=== PATIENT | female | born 1955 | race Caucasian/White ===

== ENCOUNTER 2022-08-28 14:41 | Outpatient (CLI) | payer OTHER, SELFPAY ==
--- NOTE | 2022-08-28 15:00 | CRLHL7_ITS ---
For Patients: As a result of the Century Cures Act, medical imaging exams and procedure reports are released immediately into your electronic medical record. You may view this report before your referring provider. If you have questions, please contact your health care provider. BILATERAL SCREENING MAMMOGRAM WITH COMPUTER-AIDED DETECTION AND TOMOSYNTHESIS TECHNIQUE: CC and MLO views were obtained. These mammographic images have been obtained using full-field digital technique. These mammographic images were interpreted with the benefit of computer-aided detection. Breast Tomosynthesis was used in this interpretation. COMPARISON FILM: 09/02/21, 08/13/20, 08/12/19. FINDINGS: There are scattered areas of fibroglandular density IMPRESSION: There is no radiographic evidence for malignancy. ASSESSMENT: BI-RADS Category 1: Negative RECOMMENDATION: Routine screening mammogram in 1 year. A lay language report of this examination will be provided to the patient. Wesley Fernández M.D. Diagnostic Radiologist [email or web address] NAGI/Dictated by: Wesley Fernández MD @ 08/29/2022 9:40:00 AM (Electronically Signed)
== END 2022-08-28 14:42 | disposition home or self-care (01) ==
LOC: MAMMO 14:42
PROVIDERS: PCP Physician Assistant Medical; Visit Provider Physician Assistant Medical
DX: Z12.31 Encounter for screening mammogram for malignant neoplasm of breast (principal)
CPT/HCPCS: 77063; 77067

== ENCOUNTER 2022-09-24 08:29 | Outpatient (CLI) | payer OTHER, SELFPAY | END 2022-09-24 08:30 | disposition home or self-care (01) | LOC: NFLDREF 09-25 11:24 | PROVIDERS: PCP Physician Assistant Medical; Referring Provider Physician Assistant Medical; Visit Provider Physician Assistant Medical | DX: Z00.00 Encounter for general adult medical examination without abnormal findings (principal); Z13.6 Encounter for screening for cardiovascular disorders | CPT/HCPCS: 80053; 80061 ==

== ENCOUNTER 2023-03-06 07:40 | Outpatient (CLI) | payer MEDICARE, SELFPAY | END 2023-03-06 07:41 | disposition home or self-care (01) | LOC: RAD 07:41 | PROVIDERS: PCP Physician Assistant Medical; Visit Provider Internal Medicine | DX: I50.9 Heart failure, unspecified (principal) | CPT/HCPCS: 93306 ==

== ENCOUNTER 2023-07-03 07:42 | Outpatient (CLI) | payer MEDICARE, SELFPAY ==
--- NOTE | 2023-07-03 08:50 | W.ANESCHARGE ---
Anesthesia Charges Start Date/Time Anesthesia Start Date: 07/03/23 Anesthesia Start Time: 08:20 Stop Date/Time Anesthesia Stop Date: 07/03/23 Anesthesia Stop Time: 08:46
--- NOTE | 2023-07-03 09:05 | W.ANESCHARGE ---
Anesthesia Charges Start Date/Time Anesthesia Start Date: 07/03/23 Anesthesia Start Time: 08:20 Stop Date/Time Anesthesia Stop Date: 07/03/23 Anesthesia Stop Time: 08:46
== END 2023-07-03 07:43 | disposition home or self-care (01) ==
LOC: OP CLINIC 07:43
PROVIDERS: PCP Physician Assistant Medical; Visit Provider Internal Medicine
DX: Z12.11 Encounter for screening for malignant neoplasm of colon (principal); K63.5 Polyp of colon; K57.30 Diverticulosis of large intestine without perforation or abscess without bleeding; Z86.010 Personal history of colon polyps
CPT/HCPCS: 00811; 45380; 88305; J2704

== ENCOUNTER 2023-09-01 13:35 | Outpatient (CLI) | payer MEDICARE, SELFPAY ==
--- NOTE | 2023-09-01 14:00 | MM_ITS ---
Patient: SUKHJINDER STANLEY Facility:?[facility] Patient ID:?[id number] Site Patient ID:?[id number]. Site :?[id number] Study:?XRay-Breast Bilateral 3D W/CAD-09/01/2023 2:13:11 PM Ordering Physician:Parish Final Report: BILATERAL SCREENING MAMMOGRAM WITH COMPUTER-AIDED DETECTION AND TOMOSYNTHESIS TECHNIQUE: CC and MLO views were obtained. These mammographic images have been obtained using full-field digital technique. These mammographic images were interpreted with the benefit of computer-aided detection. Breast Tomosynthesis was used in this interpretation. COMPARISON FILM: 08/28/22, 09/02/21, 08/13/20. FINDINGS: There are scattered areas of fibroglandular density IMPRESSION: There is no radiographic evidence for malignancy. ASSESSMENT: BI-RADS Category 1: Negative RECOMMENDATION: Routine screening mammogram in 1 year. A lay language report of this examination will be provided to the patient. Wesley Fernández M.D. Diagnostic Radiologist [email or web address] FAUSTINO/clary D& Transcribed: 9:28 p.m. NAGI/Dictated by: Wesley Fernández MD @ 09/02/2023 12:16:00 PM Signed by:?Wesley Fernández MD @09/03/2023 5:28:12 AM (Electronic Signature)
== END 2023-09-01 13:36 | disposition home or self-care (01) ==
PROVIDERS: PCP Physician Assistant Medical; Visit Provider Physician Assistant Medical
DX: Z12.31 Encounter for screening mammogram for malignant neoplasm of breast (principal)
CPT/HCPCS: 77063; 77067

== ENCOUNTER 2024-01-05 08:18 | Outpatient (CLI) | payer MEDICARE, SELFPAY ==
--- OUTSIDE RECORDS SUMMARY | 2024-01-06 11:46 | XMS_ITS | Referral Summary ---
Author Organization [facility] Address [address] [place] [id number] Care Team Providers Care Card Table Attendant Name Role Phone Phoebe Snyder MD Unavailable [phone] [facility], [facility] Primary Care Provider Allergies Active Allergy Reactions Criticality Noted Date Comments Tetrahydrozoline Hcl 09/24/2011 Watery, swelling and red Hydrocodone-Acetaminophen 09/24/2011 Swelling, rash Medications Medication Sig Dispensed Refills Start Date End Date Status [place]-3 Fatty Acids (OMEGA-3 FISH OIL PO) Take by mouth daily. Active aspirin 81 MG tablet Take 1 tablet (81 mg) by mouth daily 02/07/2015 Active nitroglycerin (NITROSTAT) 0.4 MG SL tabletIndications:Be nary artery disease involving makah coronary artery of makah heart without angina pectoris Place 1 tablet (0.4 mg) under the tongue every 5 minutes as needed for chest pain 25 tablet 0 02/20/2016 Active atorvastatin (LIPITOR) 40 MG tabletIndications:Be nary artery disease involving makah coronary artery of makah heart without angina pectoris,Hyperlipidemi a LDL goal <70 TAKE 1 TABLET(40 MG) BY MOUTH DAILY 90 tablet 4 06/03/2017 Active lisinopril (PRINIVIL/ZESTRIL) 40 MG tabletIndications:Esse ntial hypertension with goal blood pressure less than 140/90 TAKE 1 TABLET(40 MG) BY MOUTH DAILY 90 tablet 4 06/03/2017 Active metoprolol tartrate (LOPRESSOR) 50 MG tabletIndications:Be nary artery disease involving makah coronary artery of makah heart without angina pectoris,Essential hypertension with goal blood pressure less than 140/90 TAKE 1/2 TABLET(25 MG) BY MOUTH TWICE DAILY 30 tablet 06/18/2018 Active Active Problems Problem Noted Date Diagnosed Date LVH (left ventricular hypertrophy) 02/06/2014 Hypertension goal BP (blood pressure) < 140/90 0 02/06/2014 Alopecia 02/06/2013 Tubular adenoma 01/17/2013 CAD (coronary artery disease) 09/24/2011 Overview: s/p 2 WADE in LAD 09/2011 Family history of breast cancer 09/24/2011 Hyperlipidemia LDL goal <70 09/24/2011 Resolved Problems Problem Noted Date Diagnosed Date Resolved Date Guaiac positive stools 11/29/201202/06 Obesity 11/25/2012 02/20/2016 Overweight (BMI 25.0-29.9) 05/19/2012 0 02/06/2014 S/P hernia repair 11/19/2011 02/10/2014 Dyslipidemia 09/24/2011 02/10/2014 Obesity 09/24/2011 05/19/2012 Snoring 09/24/2011 05/19/2012 assisted current use of ant icoagulant therapy 09/24/2011 02/06/2014 Overview: Problem list name updated by automated process. Provider to review Immunizations Name Administration Dates Next Due TD,PF 7+ (Tenivac) 01/27/2003 TDAP Vaccine (Boostrix) 09/24/2011 Zoster vaccine, live 10/24/2011 Social History Tobacco Use Types Packs/Day Years Used Date Smoking Tobacco: Never Smokeless Tobacco: Never Alcohol Use Standard Drinks/Week Comments Yes 0 (1 standard drink = 0.6 oz pur e alcohol) rare PHQ-2 Answer Date Recorded PHQ-2 Score 0 06/23/2018 Sex and Gender Information Value Date Recorded Sex Assigned at Not on file Gender Identity Not on file Sexual Orientation Not on file Last Filed Vital Signs Vital Sign Reading Time Taken Comments Blood Pressure 137/70 06/03/2017 7:04 AM RESIDENTIAL DIRECT SUPPORT PROFESSIONAL Pulse 58 06/03/2017 7:04 AM RESIDENTIAL DIRECT SU[employer] PROFESSIONAL Temperature 37 ??C (98.6 ??F) 06/03/2017 7:04 AM RESIDENTIAL DIRECT SUPPORT PROFESSIONAL Respiratory Rate 19 06/03/2017 7:04 AM RESIDENTIAL DIRECT SUPPORT PROFESSIONAL Oxygen Saturation 98% 06/03/2017 7:04 AM RESIDENTIAL DIRECT SUPPORT PROFESSIONAL Inhaled Oxygen Concentration - - Weight 78.5 kg (173 lb) 06/03/2017 7:04 AM RESIDENTIAL DIRECT SUPPORT PROFESSIONAL Height 160 cm (5' 3) 06/03/2017 7:04 AM RESIDENTIAL DIRECT SUPPORT PROFESSIONAL Body Mass Index 30.65 06/03/2017 7:04 AM RESIDENTIAL DIRECT SUPPORT PROFESSIONAL Plan of Treatment Not on file Advance Directives For more information, please contact: [phone] * Full Code (Latest Code Status on File) Date Activated Date Inactivated Comments 11/23/2011 11:40 AM * Full Code Date Activated Date Inactivated Comments 2011 12:13 PM 11/23/2011 11:40 AM * Full Code Date Activated Date Inactivated Comments 11/10/2011 5:49 PM 11/15/2011 8:01 PM Care Teams Card Table Attendant Relationship [facility] [address] PCP - General 06/18/18 Phoebe Snyder MD Surgeon Surgery 11/10/11
--- OUTSIDE RECORDS SUMMARY | 2024-01-06 11:46 | XMS_ITS | Clinical Summary ---
Author Organization [facility] Address [place], [place] [address] Care Team Providers Care Lamination Machine Operator Name Role Phone Mena Johnson MD Unavailable Laila Alvarez PA-C Primary Care Provider + [phone] Allergies Active Allergy Reactions Criticality Noted Date Comments Hydrocodone-Acetaminophen Hives 09/17/2011 Medications Medication Sig Dispensed Refills Start Date End Date Status nitroglycerin (NITROSTAT) 0.[address] 1 tablet under the tongue every 5 minutes if needed (For chest pain x 3 doses.). 1 Bottle 2 09/22/2011 Active fish oil-omega-3 fatty acids (FISH OIL) 360-1,200 mg Cap Take 1 capsule by mouth every morning. 0 09/22/2011 Active atorvastatin (LIPITOR) 40 mg tablet Take 1 tablet by mouth once daily. 30 tablet 2 09/22/2011 Active Additional Information Patient taking differently:40 mg OralBEDTIME, Informant: Patient's Recall, Reported on 11/26/2022 cholecalciferol, Vitamin D3, 2,000 unit tablet Take 2,000 units by mouth once daily. Active multivitamin (MVI) tablet Take 1 Tablet by mouth once daily. Active aspirin (ECOTRIN) 81 mg enteric coated tabletIndications: ST elevation myocardial infarction (STEMI) of anterior wall (HC) Take 1 Tablet (81 mg) by mouth once daily. Hold x 5 days. Resume taking aspirin 81 mg daily on 12/09/2022 0 12/04/2022 Active amLODIPine (NORVASC) 5 mg tabletIndications: Hypertension Take 1 Tablet (5 mg) by mouth once daily. 90 Tablet 3 02/13/2023 Active valsartan (DIOVAN) 160 mg tabletIndications: Palpitations TAKE 1 TABLET(160 MG) BY MOUTH TWICE DAILY 180 Tablet 1 08/24/2023 Active carvediloL (COREG) 12.5 mg tabletIndications: Palpitations Take 1 Tablet (12.5 mg) by mouth two times daily. Further refills require a scheduled office visit with Dr. Alicea. Please call [phone] to schedule. 60 Tablet 11/20/2023 Active Hospital, Clinic, or Other Facility Administered Medication Ordered Dose Route Frequency Start Date End Date Status sodium chloride syringe 9 mLIndications:Coronary artery disease, unspecified vessel or lesion type, unspecified whether angina present, unspecified whether [place]or[place] or transplanted heart 9 mL IV ONE TIME 01/01/2024 01/01/2024 Ended Active Problems Patient Care Coordination No te Formatting of this note is d ifferent from the original. My Personal Action Plan: Contacts: Weekday/Work Hours: Your Primary Care Provider (Mena Johnson MD) at [phone] Your Care Management Team at [facility] at [phone], Thursday thru Thursday 8 am to 5 pm After Hours/Weekends: Care Navigation Triage at [phone] or Call if/when any of the following Signs and/or symptoms are present: FOR EMERGENCY DIAL 911 Don't Delay - If you or someone you love experiences any of the following sign/symptoms, seek medical advice IMMEDIATELY by calling 911. For problems/concerns, call your Health Care Provider: A tightening, pressure, squeezing, or aching in your chest or arms A feeling of indigestion or fullness Heartburn A sharp, burning or cramping pain Nausea or vomiting Chest discomfort (not relieved by nitro) Swollen feet, ankles and legs more than usual Fatigue, weakness, loss of energy Coughing at night or chronic cough Shortness of breath Dizziness Sweating Loss of appetite In women, chest pain may not follow the classic pattern. Rather, women may experience: ??Pain located in the jaw, teeth, throat, neck, shoulders and back ??Vague chest pain that comes and goes over the course of days ??No chest pain at all (more common in women who are diabetic) ??For women who experience no chest pain at all, the above symptoms may be their only clue that something is wrong If you are not sure about what you are feeling or have questions about how you are feeling, stop whatever you are doing and call your clinic, ask to talk to a doctor or a nurse. Do not try to deny, dismiss or make excuses for early warning signs. Call 911 right away if the signs get worse when you walk around or if the signs do not get better when you rest. If you are given a prescription for NITROGLYCERIN (NTG) for angina (chest pain): 1. SIT DOWN when taking Nitroglycerin 2. Place one tablet under your tongue. 3. Unless you are instructed differently by your Health Care Provider, if chest pain is not relieved 5 minutes after taking 1 tablet, CALL 911! a. Advance Care Plan: i. Goals and Wishes Documented in Chart No ii. Spokesperson: Name and telephone number Shar Romo/spouse at [phone] and Elisa Rees/ daughter at [phone] iii. Signed Health Care Directive in Chart No Problem Noted Date Diagnosed Date Ischemic cardiomyopathy 11/12/2022 Atrial tachycardia 11/12/2022 Hyperlipidemia LDL goal <70 09/18/2011 ST elevation myocardial infarction (STEMI) of an terior wall 09/17/2011 CAD (coronary artery disease) 09/17/2011 Overview: - 09/17/11 Anterior STEMI: cor angio with 100% prox LAD, 80% mid LAD; s/p WADE x 2 to LAD Obesity 09/17/2011 Family history of ischemic heart disease Overview: Father of [place] at age 49 Encounters Date Type Department Care Team Description 01/01/2024 10:00 AM CDT Ancillary Procedure [facility] [address] [place] [address] 01/01/2024 Travel 11/20/2023 Refill [facility] [address] [place] [address] Phoebe Garza NP Refill Request (Carvedilol) from Last 3 Months Family History Medical History Relation Name Comments Heart Disease Father of [place] at age 49 Relation Name Status Comments Father Social History Tobacco Use Types Packs/Day Years Used Date Smoking Tobacco: Never Smokeless Tobacco: Never Alcohol Use Standard Drinks/Week Comments Yes 0.8 (1 standard drink = 0.6 oz p ure alcohol) Rare Social Connections Answer Date Recorded Frequency of Communication with Friends and Fami ly Not on file 06/12/2021 Financial Resource Strain Answer Date R ecorded Difficulty of Paying Living Expenses Not on file 06/12/2021 Difficulty of Paying Living Expenses Not on file 06/12/2021 Sex and Gender Information Value Date Recorded Sex Assigned at Not on file Gender Identity Not on file Sexual Orientation Not on file Obstetrics History Last Filed Vital Signs Vital Sign Reading Time Taken Comments Blood Pressure 175/90 12/04/2022 11:30 AM CDT Pulse 60 12/04/2022 11:15 AM CDT Temperature 36.6 ??C (97.8 ??F) 12/04/2022 11:30 AM C DT Respiratory Rate 20 12/04/2022 11:15 AM CDT Oxygen Saturation 95% 12/04/2022 11:30 AM CDT Inhaled Oxygen Concentration - - Weight 93 kg (205 lb) 12/04/2022 7:29 AM CDT Height 160 cm (5' 3) 12/04/2022 7:29 AM CDT Body Mass Index 36.31 12/04/2022 7:29 AM CDT Plan of Treatment Upcoming Encounters Date Type Department Care Team (Late st Contact Info) Description 01/26/2024 3:30 PM CDT Office Visit [facility] [address] [place] [address] Barbara Alicea MD [address] [place] [address] 02/23/2024 9:00 AM CDT Cardiac Device Check [facility] [address] [place] [id number] Health Maintenance Due Date Last Done Comments Tdap 1968 Depression screening for age 12+ 1969 Hepatitis C screening for age 18-79 11/22/1975 Tetanus booster 1977 Colonoscopy through age 75 2002 Mammogram for age 45-75 2002 Zoster (shingles) series for age 50+ (1 of 2) 11/22/2007 Lipids for age 45-75 11/23/2016 11/24/2011, 09/18/19 12 DEXA/DXA scan for age 65+ 2022 Medicare Wellness for age 65+ 2022 Pneumococcal series for age 65+ (1 of 1 - PCV) 2022 COVID-19 vaccine series (3 - 2022-24 season) 2023 09/07/2020, 08/10/2020 BMI (ht and wt on same day) for age 18+ 11/13/2023 0 11/12/2022, 11/18/2021 Influenza for age 65+ 02/14/2024 Procedures Procedure Name Priority Date/Time Associated Diagnosis Comments ECHO TTE COMPLETE W CONTRAST Routine 01/01/2024 11:31 AM CDT Coronary artery disease, unspecified vessel or lesion type, unspecified whether angina present, unspecified whether noorvik or transplanted heart Ischemic cardiomyopathy LIPID PANEL Timed 11/24/2011 9:16 AM CDT Hyperlipidemia LDL goal <70 from Last 3 Months or Most Recently Relevant to Health Maintenance Results * ECHO TTE COMPLETE W CONTRAST (01/01/2024 11:31 AM CDT) AORTIC VALVE MEAN PG 6 mmHg EJECTION FRACTION 30 % PEAK TR VELOCITY 2.4 m/s LVEDD 5.8 cm EJECTION FRACTION 25 - 30% Anatomical Region Laterality Modality Ultrasound 01/01/2024 10:0 1 AM CDT Narrative 01/01/2024 12:29 PM CDT ECHOCARDIOGRAM SUKHJINDER REES ?Accession#: ?? [id number] : ?1955 68 years Study Date: ?? 01/01/2024 10:01:14 AM Gender: F ? BP: ? 130/75 mmHg Height: 160.02 cm ? BSA: ?1.95 m? ? ? Weight: 92.99 kg ?Tech: ? MSR ?Referring MD: BARBARA ALICEA Site: ? [facility] Reading Location: Mobile OP Patient Location: Outpatient. Procedure: 2D w/ Contrast, Color Doppler and Spectral Doppler. Indication for study: Coronary artery disease, unspecified vessel or lesion type, unspecified whether angina present, unspecified whether noorvik or transplanted heart; Ischemic cardiomyopathy Cardiac Rhythm: Regular.Study quality: Fair. Final Impressions: 1. Mild to moderately increased LV size, normal wall thickness, severely reduced global systolic function with an estimated EF of 25 - 30%. 2. Entire anterior septum, entire apex, mid septum segment, and mid anterior segment are abnormal. 3. Right ventricular cavity size is normal, global systolic RV function is normal. Pacemaker wire present. 4. The mitral valve is normal, mild mitral regurgitation. 5. Echo contrast was administered to enhance visualization of all left ventricular segments. Chamber Sizes and Function Mild to moderately increased left ventricular size, normal wall thickness, severely reduced global systolic function with an estimated EF of 25 - 30%. Left atrial size is normal. Right ventricular cavity size is normal, global systolic RV function is normal. Pacing wire/catheter visualized in the right ventricle and pacing wire/catheter visualized in the right atrium. The right atrium is normal. The pulmonary artery is not well visualized. The sinus of Valsalva is normal sized. The ascending aorta is normal sized. The entire anterior septum, entire apex, and mid septum segment are akinetic. The mid anterior segment is hypokinetic. Valves, RV Pressures and Diastolic Function The aortic valve is trileaflet, no stenosis and no regurgitation. The mitral valve is normal in structure, mild mitral regurgitation. Spectral Doppler shows Grade 1 pattern of LV diastolic filling. The tricuspid valve is normal in structure. Tricuspid regurgitation is mild regurgitation. The tricuspid regurgitant velocity is 2.4 m/s, the estimated right ventricular systolic pressure is 22 mmHg plus right atrial pressure. The pulmonic valve is not well visualized. Trace pulmonary regurgitation. Masses, Effusion, Shunts There is no pericardial effusion. The inferior vena cava is normal sized, respiratory size variation not well visualized. No left to right shunting was detected by limited color flow Doppler interrogation of the interatrial septum. MEASUREMENTS AND CALCULATIONS 2-D Measurements and LV Function: LVID (d) 5.8 cm LV FS% (2D) ?? 5 % LVID (s) 5.5 cm LVOT diameter 2.0 cm IVS (d) ??0.9 cm HR ?63 bpm LVPW (d) 1.0 cm LA Vol index ??30 ml/m2 Ao Sinus 3.0 cm RV Max 4C (d) 3.6 cm Asc Ao ?? 3.2 cm LA ? 4.3 cm Diastology: Mitral ?Tissue Doppler E Peak 0.7 m/s ??e', Septum ? 0.04 m/s A Peak 0.8 m/s ??e', Lateral ?0.07 m/s E/A ?0.9 ?E/e' Average ?? 12.91 DT ? 192 msec Aortic Valve: Vmax ? 1.6 m/s ??MICHEL (V) ?? 2.22 cm? ? ? VTI ?0.36 m ?? MICHEL (I) ?? 2.18 cm? ? ? LVOT V max 1.2 m/s ??Max PG ?11 mmHg LVOT VTI ?? 0.25 m ?? Mean PG ?? 6 mmHg SV ? 79 ml ?Dim Index 0.69 SV index ?? 41 ml/m? ? ? CO ?5.0 l/min ?CI ?2.6 l/min/m? ? ? Mitral Valve: MVA ? 4.0 cm? ? ? MV P 1/2 ??56 msec MV Mean G 2 mmHg Tricuspid Valve and estimated PA pressures: TR Vmax 2.4 m/s TAPSE 1.9 cm TR maxG 22 mmHg Contrast documentation: 2ml ml diluted Definity, lot #[id number], [facility]# [id number] was administered peripherally to enhance visualization of all left ventricular segments. . This study was interpreted by an [facility] accredited facility. ??Final ?? Procedure Note Wesley Carreno MD - 01/01/2024 ECHOCARDIOGRAM SUKHJINDER REES : 1955 68 years Study Date: 01/01/2024 10:01:14 AM Gender: F BP: 130/75 mmHg Height: 160.02 cm BSA: 1.95 m? ? ? Weight: 92.99 kg Tech: MSR Referring MD: BARBARA ALICEA Site: [facility] Reading Location: [place] [facility] Patient Location: Outpatient. Procedure: 2D w/ Contrast, Color Doppler and Spectral Doppler. Indication for study: Coronary artery disease, unspecified vessel orlesion type, unspecified whether angina present, unspecified whethernative or transplanted heart; Ischemic cardiomyopathy Cardiac Rhythm: Regular.Study quality: Fair. Final Impressions: 1. Mild to moderately increased LV size, normal wall thickness, severelyreduced global systolic function with an estimated EF of 25 - 30%. 2. Entire anterior septum, entire apex, mid septum segment, and midanterior segment are abnormal. 3. Right ventricular cavity size is normal, global systolic RV functionis normal. Pacemaker wire present. 4. The mitral valve is normal, mild mitral regurgitation. 5. Echo contrast was administered to enhance visualization of all leftventricular segments. Chamber Sizes and Function Mild to moderately increased left ventricular size, normal wall thickness,severely reduced global systolic function with an estimated EF of 25 -30%. Left atrial size is normal. Right ventricular cavity size is normal,global systolic RV function is normal. Pacing wire/catheter visualized inthe right ventricle and pacing wire/catheter visualized in the rightatrium. The right atrium is normal. The pulmonary artery is not wellvisualized. The sinus of Valsalva is normal sized. The ascending aorta isnormal sized. The entire anterior septum, entire apex, and mid septumsegment are akinetic. The mid anterior segment is hypokinetic. Valves, RV Pressures and Diastolic Function The aortic valve is trileaflet, no stenosis and no regurgitation. Themitral valve is normal in structure, mild mitral regurgitation. SpectralDoppler shows Grade 1 pattern of LV diastolic filling. The tricuspid valveis normal in structure. Tricuspid regurgitation is mild regurgitation. Thetricuspid regurgitant velocity is 2.4 m/s, the estimated right ventricularsystolic pressure is 22 mmHg plus right atrial pressure. The pulmonicvalve is not well visualized. Trace pulmonary regurgitation. Masses, Effusion, Shunts There is no pericardial effusion. The inferior vena cava is normal sized,respiratory size variation not well visualized. No left to right shuntingwas detected by limited color flow Doppler interrogation of theinteratrial septum. MEASUREMENTS AND CALCULATIONS 2-D Measurements and LV Function: LVID (d) 5.8 cm LV FS% (2D) 5 % LVID (s) 5.5 cm LVOT diameter 2.0 cm IVS (d) 0.9 cm HR 63 bpm LVPW (d) 1.0 cm LA Vol index 30 ml/m2 Ao Sinus 3.0 cm RV Max 4C (d) 3.6 cm Asc Ao 3.2 cm LA 4.3 cm Diastology: Mitral Tissue Doppler E Peak 0.7 m/s e', Septum 0.04 m/s A Peak 0.8 m/s e', Lateral 0.07 m/s E/A 0.9 E/e' Average 12.91 DT 192 msec Aortic Valve: Vmax 1.6 m/s MICHEL (V) 2.22 cm? ? ? VTI 0.36 m MICHEL (I) 2.18 cm? ? ? LVOT V max 1.2 m/s Max PG 11 mmHg LVOT VTI 0.25 m Mean PG 6 mmHg SV 79 ml Dim Index 0.69 SV index 41 ml/m? ? ? CO 5.0 l/min CI 2.6 l/min/m? ? ? Mitral Valve: MVA 4.0 cm? ? ? MV P 1/2 56 msec MV Mean G 2 mmHg Tricuspid Valve and estimated PA pressures: TR Vmax 2.4 m/s TAPSE 1.9 cm TR maxG 22 mmHg Contrast documentation: 2ml ml diluted Definity, lot #[id number], [facility]#[id number] was administered peripherally to enhance visualization of allleft ventricular segments. . This study was interpreted by an [facility] accredited facility. Final Barbara Alicea MD ECHO ORD * LIPID PANEL (11/24/2011 9:16 AM CDT) CHOLESTEROL,TOTAL 128 100 - 199 mg/dL [facility] TRIGLYCERIDES 100 <150 mg/dL [facility] HDL CHOLESTEROL 41 >40 mg/dL [facility] CHOL/HDL RATIO 3.12 <4.50 [facility] LDL CHOLESTEROL 67 <131 mg/dL [facility] PATIENT STATUS Fasting [facility] Blood specimen (specimen) BLOOD SPECIMEN / Unknown 11/24/2011 9:16 AM CDT 11/24/2011 9:10 AM CDT Jaime Lamar MD CHEMISTRY [facility] [place]NAL ZIP [address] [place] [id number] from Last 3 Months or Most Recently Relevant to Health Maintenance Advance Directives Documents on File Type Date Recorded Patient Cleaning Maid Expl anation Healthcare Directive 12/04/2022 1:38 PM * Full Code (Latest Code Status on File) Date Activated Date Inactivated Comments 11/26/2022 9:45 AM 11/26/2022 5:25 PM Question Answer Comments Code Status Discussion: Reviewed Preferences * Full Code Date Activated Date Inactivated Comments 09/17/2011 11:20 PM 09/22/2011 3:38 PM Care Teams Lamination Machine Operator Relationship Specialty Start Date End Date Laila Alvarez PA-C [address] [place] [address] PCP - General Emergency Medicine 07/27/19 Mena Johnson MD Provider Family Practice 09/24/11
--- OUTSIDE RECORDS SUMMARY | 2024-01-06 11:46 | XMS_ITS | Clinical Summary ---
Author Organization [facility] Address [address] [place] [address] Care Team Providers Care Career Services Representative Name Role Phone Phoebe Snyder MD Unavailable [phone] [facility], [facility] Primary Care Provider Allergies Active Allergy Reactions Criticality Noted Date Comments Tetrahydrozoline Hcl 09/24/2011 Watery, swelling and red Hydrocodone-Acetaminophen 09/24/2011 Swelling, rash Medications Medication Sig Dispensed Refills Start Date End Date Status [place]-3 Fatty Acids (OMEGA-3 FISH OIL PO) Take by mouth daily. Active aspirin 81 MG tablet Take 1 tablet (81 mg) by mouth daily 02/07/2015 Active nitroglycerin (NITROSTAT) 0.4 MG SL tabletIndications:Be nary artery disease involving koi coronary artery of koi heart without angina pectoris Place 1 tablet (0.4 mg) under the tongue every 5 minutes as needed for chest pain 25 tablet 0 02/20/2016 Active atorvastatin (LIPITOR) 40 MG tabletIndications:Be nary artery disease involving koi coronary artery of koi heart without angina pectoris,Hyperlipidemi a LDL goal <70 TAKE 1 TABLET(40 MG) BY MOUTH DAILY 90 tablet 4 06/03/2017 Active lisinopril (PRINIVIL/ZESTRIL) 40 MG tabletIndications:Esse ntial hypertension with goal blood pressure less than 140/90 TAKE 1 TABLET(40 MG) BY MOUTH DAILY 90 tablet 4 06/03/2017 Active metoprolol tartrate (LOPRESSOR) 50 MG tabletIndications:Be nary artery disease involving koi coronary artery of koi heart without angina pectoris,Essential hypertension with goal [...] 02/10/2014 Obesity 09/24/2011 05/19/2012 Snoring 09/24/2011 05/19/2012 senior living current use of ant icoagulant therapy 09/24/2011 02/06/2014 Overview: Problem list name updated by automated process. Provider to review Immunizations Name Administration Dates Next Due TD,PF 7+ (Tenivac) 01/27/2003 TDAP Vaccine (Boostrix) 09/24/2011 Zoster vaccine, live 10/24/2011 Family History Medical History Relation Comments Myocardial Infarction Father Myocardial Infarction Maternal Grandmother diabe darshan, overweight, chf, from kidney failure after colon surgey Breast Cancer Mother brain tumor, hea rt issues, high cholesterol Family History Negative Paternal Grandfather glu coma, stomach aneurysm Respiratory Paternal Grandmother emphysema, fell and broke hip, not sure cause of Family History Negative Sister 1 Relation Status Comments Father Maternal Grandmother Mother Alive Paternal Grandfather Paternal Grandmother Sister Social History Tobacco Use Types Packs/Day Years [...] Comments Blood Pressure 137/70 06/03/2017 7:04 AM SURVEY DIRECTOR Pulse 58 06/03/2017 7:04 AM SURVEY DIRECTOR Temperature 37 ??C (98.6 ??F) 06/03/2017 7:04 AM SURVEY DIRECTOR Respiratory Rate 19 06/03/2017 7:04 AM SURVEY DIRECTOR Oxygen Saturation 98% 06/03/2017 7:04 AM SURVEY DIRECTOR Inhaled Oxygen Concentration - - Weight 78.5 kg (173 lb) 06/03/2017 7:04 AM SURVEY DIRECTOR Height 160 cm (5' 3) 06/03/2017 7:04 AM SURVEY DIRECTOR Body Mass Index 30.65 06/03/2017 7:04 AM SURVEY DIRECTOR Plan of Treatment Not on file Advance Directives For more information, please contact: [phone] * Full Code (Latest Code Status on File) Date Activated Date Inactivated Comments 11/23/2011 11:40 AM * Full Code Date Activated Date Inactivated Comments 2011 12:13 PM 11/23/2011 11:40 AM * Full Code Date Activated Date Inactivated Comments 11/10/2011 5:49 PM 11/15/2011 8:01 PM Care Teams Career Services Representative Relationship Specialty Start Date End Date [address] [address] PCP - General 06/18/18 Phoebe Snyder MD Surgeon Surgery 11/10/11
== END 2024-01-05 08:19 | disposition home or self-care (01) ==
LOC: NFLDREF 01-06 11:43
PROVIDERS: PCP Physician Assistant Medical; Referring Provider Physician Assistant Medical; Visit Provider Physician Assistant Medical
DX: Z00.00 Encounter for general adult medical examination without abnormal findings (principal); I10 Essential (primary) hypertension; E78.00 Pure hypercholesterolemia, unspecified; I25.10 Atherosclerotic heart disease of native coronary artery without angina pectoris; E80.4 Gilbert syndrome; Z11.59 Encounter for screening for other viral diseases; Z11.3 Encounter for screening for infections with a predominantly sexual mode of transmission
CPT/HCPCS: 80053; 80061; 84443; 86703; 86803

== ENCOUNTER 2024-01-21 15:08 | Outpatient (CLI) | payer MEDICARE, SELFPAY ==
--- OUTSIDE RECORDS SUMMARY | 2024-01-21 15:10 | XMS_ITS | Clinical Summary ---
Author Organization [place] Address [address] [place] [address] Care Team Providers Care Layer Out Name Role Phone Phoebe Snyder MD Unavailable [phone] [facility] Primary Care Provider Allergies Active Allergy Reactions Criticality Noted Date Comments Tetrahydrozoline Hcl 09/24/2011 Watery, swelling and red Hydrocodone-Acetaminophen 09/24/2011 Swelling, rash Medications Medication Sig Dispensed Refills Start Date End Date Status [place]-3 Fatty Acids (OMEGA-3 FISH OIL PO) Take by mouth daily. Active aspirin 81 MG tablet Take 1 tablet (81 mg) by mouth daily 02/07/2015 Active nitroglycerin (NITROSTAT) 0.4 MG SL tabletIndications:Be nary artery disease involving rosebud coronary artery of rosebud heart without angina pectoris Place 1 tablet (0.4 mg) under the tongue every 5 minutes as needed for chest pain 25 tablet 0 02/20/2016 Active atorvastatin (LIPITOR) 40 MG tabletIndications:Be nary artery disease involving rosebud coronary artery of rosebud heart without angina pectoris,Hyperlipidemi a LDL goal <70 TAKE 1 TABLET(40 MG) BY MOUTH DAILY 90 tablet 4 06/03/2017 Active lisinopril (PRINIVIL/ZESTRIL) 40 MG tabletIndications:Esse ntial hypertension with goal blood pressure less than 140/90 TAKE 1 TABLET(40 MG) BY MOUTH DAILY 90 tablet 4 06/03/2017 Active metoprolol tartrate (LOPRESSOR) 50 MG tabletIndications:Be nary artery disease involving rosebud coronary artery of rosebud heart without angina pectoris,Essential hypertension with goal [...] 02/10/2014 Obesity 09/24/2011 05/19/2012 Snoring 09/24/2011 05/19/2012 USP current use of ant icoagulant therapy 09/24/2011 [...] Comments Blood Pressure 137/70 06/03/2017 7:04 AM TIRE MECHANIC Pulse 58 06/03/2017 7:04 AM TIRE MECHANIC Temperature 37 ??C (98.6 ??F) 06/03/2017 7:04 AM TIRE MECHANIC Respiratory Rate 19 06/03/2017 7:04 AM TIRE MECHANIC Oxygen Saturation 98% 06/03/2017 7:04 AM TIRE MECHANIC Inhaled Oxygen Concentration - - Weight 78.5 kg (173 lb) 06/03/2017 7:04 AM TIRE MECHANIC Height 160 cm (5' 3) 06/03/2017 7:04 AM TIRE MECHANIC Body Mass Index 30.65 06/03/2017 7:04 AM TIRE MECHANIC Plan of Treatment Not on file Advance Directives For more information, please contact: [phone] * Full Code (Latest Code Status on File) Date Activated Date Inactivated Comments 11/23/2011 11:40 AM * Full Code Date Activated Date Inactivated Comments 2011 12:13 PM 11/23/2011 11:40 AM * Full Code Date Activated Date Inactivated Comments 11/10/2011 5:49 PM 11/15/2011 8:01 PM Care Teams Layer Out Relationship Specialty Start Date End Date [address] [address] PCP - General 06/18/18 Phoebe Snyder MD Surgeon Surgery 11/10/11
--- OUTSIDE RECORDS SUMMARY | 2024-01-21 15:11 | XMS_ITS | Clinical Summary ---
Author Organization [facility] Address [place], [place] [address] Care Team Providers Care Epic Radiant Analyst Name Role Phone Mena Johnson MD Unavailable Laila Alvarez PA-C Primary Care Provider + [phone] Allergies Active Allergy Reactions Criticality Noted Date [...] office visit with Dr. Alicea. Please call [phone] to schedule. 60 Tablet 11/20/2023 Active Hospital, Clinic, or Other Facility Administered Medication Ordered Dose Route Frequency Start Date End Date Status sodium chloride syringe 9 mLIndications:Coronary artery disease, unspecified vessel or lesion type, unspecified whether angina present, unspecified whether klamath or transplanted heart 9 mL IV ONE TIME 01/01/2024 01/01/2024 Ended Active Problems Patient Care Coordination No te Formatting of this note is d ifferent from the original. My Personal Action Plan: Contacts: Weekday/Work Hours: Your Primary Care Provider (Mena Johnson MD) at [phone] Your Care Management Team at [facility] at [phone], Thursday thru Thursday 8 am to 5 pm After Hours/Weekends: Care Navigation Triage at [phone] or Call if/when any of the following [...] Name and telephone number Shar Romo/spouse at [phone] and Elisa Rees/ daughter at [phone] iii. Signed Health Care Directive in Chart [...] of ischemic heart disease Overview: Father of [place] at age 49 Encounters Date Type Department Care Team Description 01/01/2024 10:00 AM CDT Ancillary Procedure [facility] [address] [place] [address] 01/01/2024 Travel 11/20/2023 Refill [facility] [address] [place] [address] Phoebe Garza NP Refill Request (Carvedilol) from Last 3 Months Family History Medical History Relation Name Comments Heart Disease Father of [place] at age 49 Relation Name Status Comments [...] Description 01/26/2024 3:30 PM CDT Office Visit [facility] [address] [place] [address] Barbara Alicea MD [address] [place] [address] 02/23/2024 9:00 AM CDT Cardiac Device Check [facility] [address] [place] [phone] Health Maintenance Due Date Last Done Comments [...] type, unspecified whether angina present, unspecified whether klamath or transplanted heart Ischemic cardiomyopathy LIPID PANEL [...] PM CDT ECHOCARDIOGRAM SUKHJINDER REES ?Accession#: ?? [id number] : ?1955 68 years Study Date: ?? 01/01/2024 10:01:14 AM Gender: F ? BP: ? 130/75 mmHg Height: 160.02 cm ? BSA: ?1.95 m? ? ? Weight: 92.99 kg ?Tech: ? MSR ?Referring MD: BARBARA ALICEA Site: ? [facility] [place] Location: [facility] Patient Location: Outpatient. Procedure: 2D w/ Contrast, Color Doppler and Spectral Doppler. Indication for study: Coronary artery disease, unspecified vessel or lesion type, unspecified whether angina present, unspecified whether klamath or transplanted heart; Ischemic cardiomyopathy Cardiac Rhythm: [...] documentation: 2ml ml diluted Definity, lot #[id number], [facility]# [id number] was administered peripherally to enhance visualization of all left ventricular segments. . This study was interpreted by an [facility] accredited facility. ??Final ?? Procedure Note Wesley Carreno MD - 01/01/2024 ECHOCARDIOGRAM SUKHJINDER REES : 1955 68 years Study Date: 01/01/2024 10:01:14 AM Gender: F BP: 130/75 mmHg Height: 160.02 cm BSA: 1.95 m? ? ? Weight: 92.99 kg Tech: MSR Referring MD: BARBARA ALICEA Site: [facility] [place] Location: [place] [facility] Patient Location: Outpatient. Procedure: 2D w/ [...] documentation: 2ml ml diluted Definity, lot #[id number], [facility]#[id number] was administered peripherally to enhance visualization of allleft ventricular segments. . This study was interpreted by an [facility] accredited facility. Final Barbara Alicea MD ECHO ORD * LIPID PANEL (11/24/2011 9:16 AM CDT) CHOLESTEROL,TOTAL 128 100 - 199 mg/dL [facility] TRIGLYCERIDES 100 <150 mg/dL [facility] HDL CHOLESTEROL 41 >40 mg/dL [facility] CHOL/HDL RATIO 3.12 <4.50 [facility] LDL CHOLESTEROL 67 <131 mg/dL [facility] PATIENT STATUS Fasting [facility] Blood specimen (specimen) BLOOD SPECIMEN / Unknown 11/24/2011 9:16 AM CDT 11/24/2011 9:10 AM CDT Jaime Lamar MD CHEMISTRY [facility] [place]NAL ZIP [address] [place] [id number] from Last 3 Months or Most Recently Relevant to Health Maintenance Advance Directives Documents on File Type Date Recorded Patient Tourist Information Officer Expl anation Healthcare Directive 12/04/2022 1:38 PM * Full Code (Latest Code Status on File) Date Activated Date Inactivated Comments 11/26/2022 9:45 AM 11/26/2022 5:25 PM Question Answer Comments Code Status Discussion: Reviewed Preferences * Full Code Date Activated Date Inactivated Comments 09/17/2011 11:20 PM 09/22/2011 3:38 PM Care Teams Epic Radiant Analyst Relationship Specialty Start Date End Date Laila Alvarez PA-C [address] [place] [address] PCP - General Emergency Medicine 07/27/19 Mena Johnson MD Provider Family Practice 09/24/11
--- OUTSIDE RECORDS SUMMARY | 2024-01-21 15:11 | XMS_ITS | Referral Summary ---
Author Organization [place] Address [address] [place] [address] Care Team Providers Care Bag Worker Name Role Phone Phoebe Snyder MD Unavailable [phone] [facility], [facility] Primary Care Provider Allergies Active Allergy Reactions Criticality Noted Date Comments Tetrahydrozoline Hcl 09/24/2011 Watery, swelling and red Hydrocodone-Acetaminophen 09/24/2011 Swelling, rash Medications Medication Sig Dispensed Refills Start Date End Date Status [place]-3 Fatty Acids (OMEGA-3 FISH OIL PO) Take by mouth daily. Active aspirin 81 MG tablet Take 1 tablet (81 mg) by mouth daily 02/07/2015 Active nitroglycerin (NITROSTAT) 0.4 MG SL tabletIndications:Be nary artery disease involving minto coronary artery of minto heart without angina pectoris Place 1 tablet (0.4 mg) under the tongue every 5 minutes as needed for chest pain 25 tablet 0 02/20/2016 Active atorvastatin (LIPITOR) 40 MG tabletIndications:Be nary artery disease involving minto coronary artery of minto heart without angina pectoris,Hyperlipidemi a LDL goal <70 TAKE 1 TABLET(40 MG) BY MOUTH DAILY 90 tablet 4 06/03/2017 Active lisinopril (PRINIVIL/ZESTRIL) 40 MG tabletIndications:Esse ntial hypertension with goal blood pressure less than 140/90 TAKE 1 TABLET(40 MG) BY MOUTH DAILY 90 tablet 4 06/03/2017 Active metoprolol tartrate (LOPRESSOR) 50 MG tabletIndications:Be nary artery disease involving minto coronary artery of minto heart without angina pectoris,Essential hypertension with goal [...] 02/10/2014 Obesity 09/24/2011 05/19/2012 Snoring 09/24/2011 05/19/2012 residential current use of ant icoagulant therapy 09/24/2011 [...] Comments Blood Pressure 137/70 06/03/2017 7:04 AM EMAIL ENGINEER Pulse 58 06/03/2017 7:04 AM EMAIL ENGINEER Temperature 37 ??C (98.6 ??F) 06/03/2017 7:04 AM EMAIL ENGINEER Respiratory Rate 19 06/03/2017 7:04 AM EMAIL ENGINEER Oxygen Saturation 98% 06/03/2017 7:04 AM EMAIL ENGINEER Inhaled Oxygen Concentration - - Weight 78.5 kg (173 lb) 06/03/2017 7:04 AM EMAIL ENGINEER Height 160 cm (5' 3) 06/03/2017 7:04 AM EMAIL ENGINEER Body Mass Index 30.65 06/03/2017 7:04 AM EMAIL ENGINEER Plan of Treatment Not on file Advance Directives For more information, please contact: [phone] * Full Code (Latest Code Status on File) Date Activated Date Inactivated Comments 11/23/2011 11:40 AM * Full Code Date Activated Date Inactivated Comments 2011 12:13 PM 11/23/2011 11:40 AM * Full Code Date Activated Date Inactivated Comments 11/10/2011 5:49 PM 11/15/2011 8:01 PM Care Teams Bag Worker Relationship Specialty Start Date End Date [facility] [address] PCP - General 06/18/18 Phoebe Snyder MD Surgeon Surgery 11/10/11
--- NOTE | 2024-01-21 15:30 | CRLHL7_ITS ---
For Patients: As a result of the Century Cures Act, medical imaging exams and procedure reports are released immediately into your electronic medical record. You may view this report before your referring provider. If you have questions, please contact your health care provider. DXA BONE MINERAL DENSITY STUDY Reason for exam: Encounter for general adult medical examination. Current height (in): 63. Weight (lb): 169. Menopause age: 46. Ethnicity: White. 1. Have you had a previous hip or vertebral fracture? No. 2. Have you had any fractures during your adult life which did not result from significant trauma (e.g., auto accident)? No. 3. Did either of your parents have a hip fracture? No. 4. Do you smoke? No. 5. Have you ever taken Glucocorticoids? No. 6. Do you have rheumatoid arthritis? No. 7. Do you have secondary osteoporosis? No. 8. Do you drink 3 or more alcoholic drinks per day? No. 9. Are you being treated for osteoporosis? No. 10. Have you ever taken any of the following medications: Actonel, Evista, Fosamax, Miacalcin, Reclast, Boniva, Forteo, HRT (i.e., estrogen/hormone therapy), Protelos, Prolia, Vitamin D, Calcium, other ??? please specify. ANSWER: Yes, calcium. 11. Do you have any of the following medical conditions: Anorexia or bulimia, asthma or emphysema, end stage renal disease, hyperparathyroidism, any seizure disorders, cancer, inflammatory bowel diseases, hysterectomy, other ??? please specify. ANSWER: No. 12. What was your maximum height (inches)? 63. 13. Do you perform weight bearing exercise regularly? No. 14. Do you regularly consume dairy products? Yes. 15. Do you drink caffeinated beverages? Yes. 16. At what age did your period start? 13. 17. Are you premenopausal? No. 18. How many full-term pregnancies have you had? 1. 19. Have you ever missed your period for more than 6 months in a row (not including or menopause)? No. TECHNIQUE: Bone mineral density study was performed using the [employer] FINDINGS: The results of the study expressed as bone mineral density (BMD) are as follows: Lumbar spine L2 to L4: BMD: 1.330 g/cm2. T-score: 2.3. Z-score: 4.2 Neck Left: BMD: 0.671 g/cm2. T-score: -1.6. Z-score: 0.0 Right: BMD: 0.768 g/cm2. T-score: -0.7. Z-score: 0.8 Total Left: BMD: 0.933 g/cm2. T-score: -0.1. Z-score: 1.2 Right: BMD: 0.965 g/cm2. T-score: 0.2. Z-score: 1.5 IMPRESSION: Osteopenia. *Comparison exams done prior to 11/2019 were performed on different unit, [employer]. FRAX 10-year Fracture Risk Major Osteoporotic Fracture: 9.2% Hip Fracture: 1.1% Reported Risk Factors: [place] () Neck BMD=0.671, BMI=29.9. YAEL ATKINS M.D. Transcribed: 6:35 p.m. [email or web address] jj/Dictated by: Yael Atkins MD @ 01/25/2024 7:58:00 AM (Electronically Signed)
== END 2024-01-21 15:09 | disposition home or self-care (01) ==
LOC: RAD 15:09
PROVIDERS: PCP Physician Assistant Medical; Visit Provider Physician Assistant Medical
DX: Z13.820 Encounter for screening for osteoporosis (principal); M85.89 Other specified disorders of bone density and structure, multiple sites; Z78.0 Asymptomatic menopausal state
CPT/HCPCS: 77080

== ENCOUNTER 2024-09-12 14:35 | Outpatient (CLI) | payer MEDICARE, SELFPAY ==
--- NOTE | 2024-09-12 15:00 | CRLHL7_ITS ---
For Patients: As a result of the Century Cures Act, medical imaging exams and procedure reports are released immediately into your electronic medical record. You may view this report before your referring provider. If you have questions, please contact your health care provider. BILATERAL SCREENING MAMMOGRAM WITH COMPUTER-AIDED DETECTION AND TOMOSYNTHESIS TECHNIQUE: CC and MLO views were obtained. These mammographic images have been obtained using full-field digital technique. These mammographic images were interpreted with the benefit of computer-aided detection. Breast Tomosynthesis was used in this interpretation. COMPARISON FILM: 09/01/23, 08/28/22, 09/02/21. FINDINGS: There are scattered areas of fibroglandular density. IMPRESSION: There is no radiographic evidence for malignancy. ASSESSMENT: BI-RADS Category 1: Negative RECOMMENDATION: Routine screening mammogram in 1 year. A lay language report of this examination will be provided to the patient. Wesley Fernández M.D. Diagnostic Radiologist [email or web address] SP/Dictated by: Wesley Fernández MD @ 09/14/2024 9:11:00 AM (Electronically Signed)
== END 2024-09-12 14:36 | disposition home or self-care (01) ==
LOC: MAMMO 14:35
PROVIDERS: PCP Physician Assistant Medical; Visit Provider Physician Assistant Medical
DX: Z12.31 Encounter for screening mammogram for malignant neoplasm of breast (principal)
CPT/HCPCS: 77063; 77067

== ENCOUNTER 2025-02-22 08:27 | Outpatient (CLI) | payer MEDICARE, SELFPAY | END 2025-02-22 08:28 | disposition home or self-care (01) | LOC: NFLDREF 02-27 11:22 | PROVIDERS: PCP Physician Assistant Medical; Referring Provider Physician Assistant Medical; Visit Provider Physician Assistant Medical | DX: I10 Essential (primary) hypertension (principal); E78.00 Pure hypercholesterolemia, unspecified; I25.10 Atherosclerotic heart disease of native coronary artery without angina pectoris; R53.83 Other fatigue; Z13.29 Encounter for screening for other suspected endocrine disorder | CPT/HCPCS: 80053; 80061; 82043; 82570; 84443 ==

== ENCOUNTER 2025-02-27 13:43 | Outpatient (CLI) | payer MEDICARE, SELFPAY | END 2025-02-27 13:44 | disposition home or self-care (01) | LOC: NFLDREF 03-05 03:15 | PROVIDERS: PCP Physician Assistant Medical; Referring Provider Physician Assistant Medical; Visit Provider Physician Assistant Medical | DX: R53.83 Other fatigue (principal); I11.9 Hypertensive heart disease without heart failure; I50.20 Unspecified systolic (congestive) heart failure; I25.10 Atherosclerotic heart disease of native coronary artery without angina pectoris | CPT/HCPCS: 82043; 82570 ==

== ENCOUNTER 2025-04-04 15:24 | Outpatient (CLI) | payer MEDICARE, SELFPAY ==
--- NOTE | 2025-04-25 12:19 | W.PM.SLEEP ---
Sleep Study Details Details Interpreting Provider: Patti Date of Sleep Study: 04/04/25 Sleep Study Details: STUDY TYPE:? Home unattended ? BMI:? 29.23 ORDERING PROVIDER:Shanta Alvarez INDICATION:? Concern for sleep apnea ? SLEEP SUMMARY:? 551.5 beats per minute RESPIRATORY SUMMARY:? AHI 18.8 per rule 1A, 11.9 per CMS guideline Low oxygen 79 1.3% of study oxygen less than 90% Snoring 97.6% PERIODIC LIMB MOVEMENTS OF SLEEP:? Not recorded CARDIAC:? Range 56-77, mean 60.4 beats per minute IMPRESSION:? Moderate obstructive sleep apnea RECOMMENDATION: Treatment options include AutoSet CPAP, dental appliance and/or airway expansion surgery.
== END 2025-04-04 15:25 | disposition home or self-care (01) ==
LOC: SLEEP 15:24
PROVIDERS: PCP Physician Assistant Medical; Visit Provider Physician Assistant Medical
DX: G47.33 Obstructive sleep apnea (adult) (pediatric) (principal)
CPT/HCPCS: 95806